=== PATIENT | male | born 1970 | race Caucasian/White ===

== ENCOUNTER 2020-06-21 05:47 | Outpatient (CLI) | payer BC ==
[~2020-06-21] VITALS: Ht 177.8 cm; Wt 91.8 kg
== END 2020-06-21 12:46 | disposition home or self-care (01) ==
LOC: PREOP 05:47
PROVIDERS: ATTEND Internal Medicine
DX: Z01.818 Encounter for other preprocedural examination (principal)

== ENCOUNTER 2020-06-24 09:06 | Day surgery (SDC) | payer BC ==
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
[~2020-06-24] VITALS: Ht 177.8 cm; Wt 91.8 kg
[2020-06-24] VITALS (10 sets, daily range): BP systolic 95–117; BP diastolic 58–83
--- NOTE | 2020-06-24 09:20 | Pre-Op Note & Conscious Sedat ---
Pre-Operative Progress Note H&P Reviewed The H&P was reviewed, patient examined and no changes noted. Date H&P Reviewed: Jun 24, 2020 Time H&P Reviewed: 09:19 Conscious Sedation Pre-Proced ASA Score 2 For ASA 3 and 4: Consider anesthesia and medical clearance. Also, for patients with a history of failed moderate sedation consider anesthesia. Airway Lungs Heart ASA score ASA 1: a normal healthy patient ASA 2: a patient with a mild systemic disease (mid diabetes, controlled hypertension, obesity ASA 3: a patient with a severe systemic disease that limits activity (angina, COPD, prior Myocardial infarction) ASA 4: a patient with an incapacitating disease that is a constant threat to life (CHF, renal failure) ASA 5: a moribund patient not expected to survive 24 hrs. (ruptured aneurysm) ASA 6: a declared brain- patient whose organs are being harvested. For emergent operations, add the letter E after the classification Mallampati Classification Grade 2 Sedation Plan Analgesia, Amnesia, Plan communicated to team members, Discussed options with patient/fam, Discussed risks with patient/fam The patient is an appropriate candidate to undergo the planned procedure, sedation, and anesthesia. The patient immediately re-assessed prior to indication. TROY BRAY MD Jun 24, 2020 09:20
[2020-06-24] MEDS ORDERED: D5 LR IV SOLUTION 1,000 ML IV ONE (09:28)
[2020-06-24] MEDS ORDERED: D5 LR IV SOLUTION 1,000 ML IV STA (09:49)
[2020-06-24] MEDS ORDERED: fentaNYL INJECTION 100 MCG/2 ML AMP IVP ONE (10:00)
[2020-06-24] MEDS ORDERED: MIDAZOLAM 5 MG/5 ML (VERSED) VIAL IV ONE (10:00)
[2020-06-24] MEDS ORDERED: LIDOCAINE JELLY 2% 6 ML SYRINGE MM PRN (10:00)
[2020-06-24] MEDS ORDERED: LIDOCAINE JELLY 2% 6 ML SYRINGE ONE (10:26)
[2020-06-24] MEDS ORDERED: fentaNYL INJECTION 100 MCG/2 ML AMP ONE (10:26)
[2020-06-24] MEDS ORDERED: MIDAZOLAM 5 MG/5 ML (VERSED) VIAL ONE (10:27)
--- NOTE | 2020-06-24 15:58 | OPERATIVE REPORT ---
DATE OF SERVICE: COLONOSCOPY SUMMARY He report for myself. He does not have any other physicians. INDICATION FOR THE PROCEDURE: Screening colonoscopy. DESCRIPTION OF PROCEDURE: The patient was placed in the left lateral decubitus position. Prior to undergoing colonoscopy, digital rectal evaluation was performed. Anal sphincter tone was normal and the perianal reflexes intact. The prostate is mildly enlarged, anodular and nontender to digital inspection. No abnormalities were noted to digital inspection of anal canal or distal rectal vault. The colonoscope was then inserted into the rectum and under direct visualization advanced to cecum. The cecum was identified by identification of the ileocecal valve and cecal strap. Photographic documentation was obtained. Careful inspection was made as colonoscope withdrawn. Quality of prep was good. FINDINGS: There was no evidence for internal or external hemorrhoids. Present in the mid rectum was a diminutive sessile polyp, was photographed and biopsied and ablated with no blood loss. The sigmoid colon was unremarkable. No evidence for diverticular disease. The descending colon and splenic flexure were unremarkable. Present in the mid transverse colon was a diminutive polyp, which was biopsied and ablated with no subsequent blood loss. The remainder of the transverse colon, hepatic flexure, ascending colon and cecum were unremarkable. ASSESSMENT: Diminutive polyps were removed from the rectum and mid transverse colon with otherwise normal colonoscopy to the cecum. The patient was reassured by today's findings. Job ID: [id number] DocumentID: [id number] Dictated Date: 06/24/2020 11:14:39 Hand Spinner Date: 06/24/2020 15:58:16 Dictated By: TROY BRAY MD
== END 2020-06-24 11:35 | disposition home or self-care (01) ==
LOC: ENDO 09:06
PROVIDERS: ATTEND Internal Medicine
DX: Z12.11 Encounter for screening for malignant neoplasm of colon (principal); K63.5 Polyp of colon; K62.1 Rectal polyp; N40.0 Benign prostatic hyperplasia without lower urinary tract symptoms; G47.33 Obstructive sleep apnea (adult) (pediatric); Z99.89 Dependence on other enabling machines and devices

== ENCOUNTER → 2021-01-09 | Outpatient (CLI) | payer OTHER | LOC: CARD 11:03 | PROVIDERS: ATTEND Internal Medicine Cardiovascular Disease | DX: I48.0 Paroxysmal atrial fibrillation (principal) | CPT/HCPCS: 93351 ==